=== PATIENT | male | born 1945 | race Caucasian/White ===

== ENCOUNTER 2016-07-14 10:21 | Day surgery (SDC) | payer BC ==
--- NOTE | ~2016-07-14 | EGD ---
EGD REPORT [facility] [address] [place]. [address] NAME: OSCAR LAM : [birth year] [place]US : [place] [facility] [place] [id number] AGE: 70 ADM/REG DATE : 07/14/16 MR#: [id number] REPORT SERV DATE: 07/14/16 DICTATED BY: KEO NOONAN DATE: 07/14/16 REPORT STATUS : Draft [facility] DATE: 07/14/16 [facility] Patient Name: Oscar Lam Date of : 1945 Attending MD: KEO NOONAN MD Procedure Date No Time: 07/14/2016 Procedure: Colonoscopy Indications: High risk colon cancer surveillance: Personal history of colonic polyps, (Last colon 2 yrs ago) Referring MD: BRIAN BAUER MD, ELO WILLIS Medicines: See the Anesthesia note for documentation of the administered medications Complications: No immediate complications. Procedure: Pre-Anesthesia Assessment: - ASA Grade Assessment: IV - A patient with severe systemic disease that is a constant threat to life. After I obtained informed consent, the scope was passed under direct vision. Throughout the procedure, the patient's blood pressure, pulse, and oxygen saturations were monitored continuously. The PCF [id number] was introduced through the anus and advanced to the terminal ileum, with identification of the appendiceal orifice and IC valve. The colonoscopy was performed without difficulty. The patient tolerated the procedure well. The quality of the bowel preparation was adequate. Findings: Normal distal rectal anastomosis with some hardness on rectal. Internal hemorrhoids were found, and they were small. A sessile polyp was found in the cecum. The polyp was small in size. The polyp was removed with a cold biopsy forceps. Resection and retrieval were complete. Impression: - Normal distal rectal anastomosis with some hardness on rectal. - Internal hemorrhoids. - One small polyp in the cecum. Resected and retrieved. Recommendation: - Patient has a contact number available for emergencies. The signs and symptoms of potential delayed complications were discussed with the patient. Return to normal activities tomorrow. Written discharge instructions were provided to the patient. - Regular diet. - Continue present medications. EGD REPORT [address] [address] NAME: OSCAR LAM : [birth year] [place]US : [place] [facility] [place] [id number] AGE: 70 ADM/REG DATE : 07/14/16 MR#: [id number] REPORT SERV DATE: 07/14/16 DICTATED BY: KEO NOONAN DATE: 07/14/16 REPORT STATUS : Draft TRANSCRIBED BY: [place] DATE: 07/14/16 - Repeat colonoscopy in 5 years for surveillance. - FOR YOUR BIOPSY RESULTS: Please go to [email or web address] and register to receive your results via the portal. Your biopsy results will be posted there in about 7 to 10 days. IF you do not see result in 10 days, call office. Procedure Code(s): --- Professional --- 75699, Colonoscopy, flexible, proximal to splenic flexure; with biopsy, single or multiple Diagnosis Code(s): --- Professional --- K64.8, Other hemorrhoids D12.0, Benign neoplasm of cecum Z86.010, Personal history of colonic polyps CPT copyright 2013 [employer]. All rights reserved. The codes documented in this report are preliminary and upon creative writing teacher review may be revised to meet current compliance requirements. Keo Noonan MD KEO NOONAN MD 07/14/2016 12:31 PM This report has been signed electronically. Number of Addenda: 0 Note Initiated On: 07/14/2016 12:09 PM Scope Withdrawal Time 0 hours 6 minutes 35 seconds [address] [place] [address]
[~2016-07-14 10:21] MED LIST: APRES25 PO; ARANESP40 SC; ASAB PO; BYSTOLIC2.5 MG PO; CEFT2 PO; CORDARONE PO; COREG3 PO; DEMA100 PO; DITRO5 PO; ELIQUIS 2.5 MG2.5 MG PO; FERROUS SULF325 M1 PO; HYDRALAZINE100 MG PO; LEVEMFLXPN SC; LEVEMIR SC; NITROII20C TOP; NORV10 PO; NORV5 PO; NOVOLOG SC; NOVOPEN SC; PHOSLO PO; PLAVIX PO; PRAVACHOL80 MG PO; PREV15 PO; PRIN10 PO; SLEEP AID25 MG PO; TRICOR145 PO; VITAMIN D400 UNI1 PO; Z300 PO; ZETIA PO
[2016-07-14 12:07] LABS: BUN (BLOOD UREA NITROGEN) 77 MG/DL (6-23); CALCIUM, SERUM 8.6 MG/DL (8.5-10.4); CHLORIDE, SERUM 104 MMOL/L (96-112); CO2 (CARBON DIOXIDE) 25 MMOL/L (24-34); CREATININE 4.16 MG/DL (0.70-1.30); GFR AFRICAN AMERICAN 15 ML/MIN (>=60); GFR NON AFRICAN AMERICAN 13 ML/MIN (>=60); GLUCOSE, SERUM 104 MG/DL (60-99); POTASSIUM, SERUM 4.4 MMOL/L (3.5-5.3); SODIUM, SERUM 140 MMOL/L (135-148)
== END 2016-07-14 23:59 | disposition home health service (06) ==
LOC: DMU 10:21
PROVIDERS: Anesthesiology; Internal Medicine Gastroenterology
PROC: 0DBH8ZX Excision of Cecum, Via Natural or Artificial Opening Endoscopic, Diagnostic (ICD-10-PCS; principal; 2016-07-14 12:30)
DX: Z12.11 Encounter for screening for malignant neoplasm of colon (principal); D12.0 Benign neoplasm of cecum; K64.8 Other hemorrhoids; I50.9 Heart failure, unspecified; I25.10 Atherosclerotic heart disease of native coronary artery without angina pectoris; I13.0 Hypertensive heart and chronic kidney disease with heart failure and stage 1 through stage 4 chronic kidney disease, or unspecified chronic kidney disease; E11.22 Type 2 diabetes mellitus with diabetic chronic kidney disease; E78.00 Pure hypercholesterolemia, unspecified; I25.2 Old myocardial infarction; N18.4 Chronic kidney disease, stage 4 (severe); G47.33 Obstructive sleep apnea (adult) (pediatric); Z95.1 Presence of aortocoronary bypass graft; Z86.010 Personal history of colon polyps; Z79.899 Other long term (current) drug therapy; Z79.4 Long term (current) use of insulin; Z87.891 Personal history of nicotine dependence; Z98.890 Other specified postprocedural states
CPT/HCPCS: 80048; 88305